=== PATIENT | male | born 1970 | race Two or more races ===

== ENCOUNTER 2019-02-04 13:22 | Emergency (ER) | payer BC ==
[2019-02-04 13:37] VITALS: BP 158/95; PULSE 86; TEMP 97.4; BMI 26.1
--- NOTE | 2019-02-04 14:21 | PDOC ---
History of Present Illness - General Chief Complaint: Abscess Boil Stated Complaint: LT SIDE BOIL ON THE FACE Time Seen by Provider: 02/04/19 13:42 History Source: Patient Exam Limitations: No Limitations - History of Present Illness Initial Comments: 02/04/19 14:16 HISTORY OF PRESENT ILLNESS: 49-year-old male past medical history of hypertension presents emergency department for evaluation of abscess to his buttock and face. Patient reports his had the buttock abscess for the past 10 days and has developed the cheek abscess patient reports picking at his buttock abscess the potentially touching his face. Patient became concerned when it started draining today. Of note patient was taking amoxicillin 875 mg for dental abscess. No recent travel or sick contacts. PAST MEDICAL HISTORY: see HPI SURGICAL HISTORY: Denies ALLERGIES: No known drug allergies REVIEW OF SYSTEMS General/Constitutional: Denies fever or chills. Denies weakness, weight change. HEENT: Denies change in vision. Denies ear pain or discharge. Denies sore throat. Cardiovascular: Denies chest pain or shortness of breath. Respiratory: Denies cough, wheezing, or hemoptysis. Gastrointestinal: Denies nausea, vomiting, diarrhea or constipation. Denies rectal bleeding. Genitourinary: Denies dysuria, frequency, or change in urination. Musculoskeletal: Denies joint or muscle swelling or pain. Denies neck or back pain. Skin and breasts: see HPI Neurologic: Denies headache, vertigo, loss of consciousness, or loss of sensation. Psychiatric: Denies depression or anxiety. Endocrine: Denies increased thirst. Denies abnormal weight change. Hematologic/Lymphatic: Denies anemia, easy bleeding, or history of blood clots. Allergic/Immunologic: Denies hives or skin allergy. Denies latex allergy. PHYSICAL EXAM General Appearance: Well-appearing, appropriately dressed. No apparent distress , no intoxication. HEENT: EOMI, PERRLA, normal ENT inspection, normal voice, TMs normal, pharynx normal. No conjunctival pallor. No photophobia, scleral icterus. Cardiovascular: RRR. S1, S2. No JVD, murmur, bradycardia, tachycardia. Vascular Pulses: Dorsalis-Pedis (R): 2+, Dorsalis-Pedis (L): 2+ Integumentary: The centimeter circular area of erythema with centralized area of fluctuance presents to the medial aspect of the right buttock. 1 spontaneously draining and purulent drainage was easily expressed from the wound. 1 cm circular area of fluctuance present to the left zygoma. No fluctuance present. No tenderness to palpation. 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 Fully oriented, alert. Appropriate mood/affect. Motor strength 5/5. No appreciable EOM palsy, facial droop or sensory deficit. 02/04/19 14:25 Past History - Past Medical History Allergies/Adverse Reactions: Allergies Allergy/AdvReac Type Severity Reaction Status Date / Time No Known Allergies Allergy Verified 02/04/19 13:35 Home Medications: Ambulatory Orders Loratadine [Claritin] 10 mg PO DAILY PRN #20 tablet 05/11/12 Meclizine HCl 25 mg PO TID PRN #14 tablet 05/11/12 Pantoprazole Sodium [Protonix] 40 mg PO DAILY #20 tablet. 05/11/12 Sulfamethoxazole/Trimethoprim [Bactrim Ds -] 1 tab PO BID #14 tablet 02/04/19 Anemia: No COPD: No HTN: Yes - Surgical History Abdominal Surgery: No - Suicide/Smoking/Psychosocial Hx Smoking Status: No Smoking History: Never smoked Have you smoked in the past 12 months: No Number of Cigarettes Smoked Daily: 0 Information on smoking cessation initiated: No Hx Alcohol Use: No Drug/Substance Use Hx: No *Physical Exam - Vital Signs Last Vital Signs Temp Pulse Resp BP Pulse Ox 97.4 F L 86 16 158/95 100 02/04/19 13:25 02/04/19 13:25 02/04/19 13:25 02/04/19 13:25 02/04/19 13:25 Medical Decision Making - Medical Decision Making 02/04/19 14:18 A/P: 49-year-old male with abscess to right buttock and left zygoma 3 cm circular area of induration with minimally fluctuance area present in the center of induration. Abscess on the buttock is spontaneously draining with purulent drainage. Purulent drainage expressed from abscess 1 cm circular area of induration presents to the left zygoma. No fluctuance present to abscess of the left zygoma This patient has been taken amoxicillin for dental infection this is most likely methicillin-resistant staph aureus. I'll prescribe the patient's Bactrim and instructed patient to apply warm compresses to the area. Patient was instructed not to pick or squeeze the abscesses and to return to either his primary doctor or emergency department in 3 days for reevaluation. I discussed the physical exam findings, ancillary test results and final diagnoses with the patient. I answered all of the patient's questions. The patient was satisfied with the care received and felt comfortable with the discharge plan and treatment plan. The patient will call their primary care physician within 24 hours to arrange follow-up and will return to the Emergency Department with any new, persistent or worsening symptoms. *DC/Admit/Observation/Transfer Diagnosis at time of Disposition: Abscess of right buttock, Abscess of left external cheek - Discharge Dispostion Disposition: HOME Condition at time of disposition: Stable Decision to Admit order: No - Prescriptions Prescriptions: Sulfamethoxazole/Trimethoprim [Bactrim Ds -] 1 tab PO BID #14 tablet - Referrals - Patient Instructions Additional Instructions: Take Bactrim DS one tablet twice a day for the next 7 days Finish all antibiotics even if you feel better. Apply warm compresses to affected areas as needed. Do not squeeze or pinch abscesses. Return to emergency department for any new or worsening symptoms. Thank you very much for choosing us to provide your emergent health care needs. - Post Discharge Activity
--- NOTE | 2019-02-05 10:12 | PDOC ---
Patient Follow-up (Call Back) - Post ED Follow - Up Condition at time of discharge: Stable Disposition at time of original discharge: HOME Reason for Call Back: Abnwl. Microbiology (Pt with presumptive MRSA on facial abscess. Pt started on Bactrim. No further work up need)
== END 2019-02-04 14:28 | disposition home or self-care (01) ==
LOC: JERFT 13:22
DX: L02.01 Cutaneous abscess of face (principal); L02.31 Cutaneous abscess of buttock
CPT/HCPCS: 87070; 87186; 87205; 99281-25